=== PATIENT | female | born 2000 ===

== ENCOUNTER 2018-03-27 18:03 | Outpatient (CLI) | payer MEDICAID | END 2018-03-27 18:04 | disposition home or self-care (01) | LOC: C.SLEEP 18:04 | DX: G47.33 Obstructive sleep apnea (adult) (pediatric) (principal) ==

== ENCOUNTER 2018-03-28 15:42 | Outpatient (CLI) | payer MEDICAID | END 2018-03-28 15:43 | disposition home or self-care (01) | LOC: C.SLEEP 15:42 | DX: G47.33 Obstructive sleep apnea (adult) (pediatric) (principal) ==